=== PATIENT | female | born 1965 | race Caucasian/White ===

== ENCOUNTER 2022-04-10 14:25 | Outpatient (CLI) | payer BC ==
[2022-04-10 15:18] LABS: Hemoglobin 14.1 g/dL (12.0-15.5); Mean Corpuscular HGB CONC 33.6 g/dL (32.0-36.0); Mean Corpuscular Hemoglobin 30.3 pg (27.0-33.0); Mean Corpuscular Volume 90.3 fl (81.6-98.3); Mean Platelet Volume 9.8 fl (7.4-10.4); Platelet Count 264 10x3/uL (150-450); RBC Distribution Width 12.6 % (11.5-14.5); Red Blood Cell (RBC) Count 4.65 10x6/uL (3.90-5.03); White Blood Cell (WBC) Count 5.9 10x3/uL (3.5-10.5)
[2022-04-10 15:44] LABS: Anion Gap 14 mmol/L (10-20); BUN (Urea Nitrogen) 16 mg/dL (9.8-20.1); Calc. Creatinine Clearance 0 mL/min (70-130); Calcium 9.5 mg/dL (7.8-10.44); Carbon Dioxide 25 mmol/L (22-29); Chloride 104 mmol/L (98-107); Estimated GFR 68; Glucose 88 mg/dL (70-105); Sodium 139 mmol/L (136-145)
== END 2022-04-10 14:26 | disposition home or self-care (01) ==
LOC: CSHLAB 14:25
PROVIDERS: ATTEND Podiatrist Foot & Ankle Surgery
DX: Z01.812 Encounter for preprocedural laboratory examination (principal); Z20.822 Contact with and (suspected) exposure to COVID-19
CPT/HCPCS: 80048; 85027; 87811

== ENCOUNTER 2022-04-13 10:02 | Day surgery (SDC) | payer BC ==
[2022-04-11 10:42] VITALS: BMI 35.4
[2022-04-13] MEDS ORDERED: Lidocaine 1% MPF 2 ML VIAL ONE (10:52)
[2022-04-13] MEDS ORDERED: PROPOFOL 20 ML ONE (11:49)
[2022-04-13] MEDS ORDERED: Fentanyl 100 MCG/2 ML VIAL ONE (11:50)
[2022-04-13] MEDS ORDERED: Lidocaine 1% PF 5 ML VIAL ONE (11:51)
[2022-04-13] MEDS ORDERED: Bupivacaine PF 0.5% 30 ML VIAL ONE (11:55)
[2022-04-13] MEDS ORDERED: CEFAZOLIN 2 GM VIAL ONE (12:03)
[2022-04-13] MEDS ORDERED: Ondansetron PF 4 MG/2 ML Vial ONE (12:12)
[2022-04-13] MEDS ORDERED: Dexamethasone 4 mg/ml Vial ONE (12:12)
[2022-04-13] MEDS ORDERED: Ketorolac Tromethamine 30 MG/ML VIAL ONE (12:26)
[2022-04-13] MEDS ORDERED: PHENYLEPHRINE-NS 100 MCG/ML 10 ML SYRINGE ONE (12:27)
== END 2022-04-13 14:28 | disposition home or self-care (01) ==
LOC: CSHSDC 10:02
PROVIDERS: ATTEND Podiatrist Foot & Ankle Surgery
PROC: 0SRM0JZ Replacement of Right Metatarsal-Phalangeal Joint with Synthetic Substitute, Open Approach (ICD-10-PCS; principal; 2022-04-13)
DX: M20.21 Hallux rigidus, right foot (principal)
CPT/HCPCS: C1776; J0690; J1100; J1885; J2405; J2704; J3010; S0020

== ENCOUNTER 2023-06-26 14:58 | Outpatient (CLI) | payer BC | END 2023-06-26 14:59 | disposition home or self-care (01) | LOC: CSHMAMMO 14:58 | PROVIDERS: ATTEND Family Medicine | DX: Z12.31 Encounter for screening mammogram for malignant neoplasm of breast (principal); M85.89 Other specified disorders of bone density and structure, multiple sites | CPT/HCPCS: 77063; 77067; 77080 ==

== ENCOUNTER 2024-06-30 08:10 | Outpatient (CLI) | payer BC | END 2024-06-30 08:11 | disposition home or self-care (01) | LOC: CSHMAMMO 08:10 | PROVIDERS: ATTEND Family Medicine | DX: Z12.31 Encounter for screening mammogram for malignant neoplasm of breast (principal) | CPT/HCPCS: 77063; 77067 ==

== ENCOUNTER 2025-07-07 15:12 | Outpatient (CLI) | payer BC | END 2025-07-07 15:13 | disposition home or self-care (01) | LOC: CSHMAMMO 15:12 | PROVIDERS: ATTEND Family Medicine | DX: Z12.31 Encounter for screening mammogram for malignant neoplasm of breast (principal) | CPT/HCPCS: 77063; 77067 ==